=== PATIENT | female | born 1985 | race Caucasian/White ===

== ENCOUNTER 2017-05-30 01:17 | Emergency (ER) | payer OTHER ==
[2017-05-30 01:21] VITALS: BP 154/78
[2017-05-30] MEDS ORDERED: NS 0.9% 1000 ML* 1,000 ML IV ONE (01:50)
[2017-05-30] MEDS ORDERED: Ondansetron INJ* 2 MG/ML VIAL IV ONE (01:50)
[2017-05-30] MEDS ORDERED: Ketorolac INJ* 30 MG/ML 1 ML VIAL IV ONE (01:50)
[2017-05-30 02:24] LABS: Hematocrit 41 % (35-47); Hemoglobin 13.3 g/dl (12.0-16.0); Mean Corpuscular HGB Conc 33 g/dl (31-36); Mean Corpuscular Hemoglobin 29 pg (27-31); Mean Corpuscular Volume 89 fL (80-97); Mean Platelet Volume 8 um3 (7.4-10.4); Red Blood Count 4.57 10^6/ul (4.0-5.4); Red Cell Distribution Width 13 % (10.5-15); White Blood Count 9.5 10^3/ul (3.5-10.8)
[2017-05-30 02:25] LABS: Urine Bacteria Absent (Absent); Urine Bilirubin Negative (Negative); Urine Glucose Negative (Negative); Urine Nitrite Negative (Negative)
[2017-05-30 02:26] LABS: ALT 13 U/L (7-52); AST 12 U/L (13-39); Add Diff/Slide Review? Slide Review Added; Albumin 3.8 g/dL (3.2-5.2); Alkaline Phosphatase 125 U/L (34-104); Anion Gap 7 mmol/L (2-11); BUN/Creatinine Ratio 14.3 (8-20); Blood Urea Nitrogen 12 mg/dL (6-24); C Reactive Protein 14.08 mg/L (< 5.00); CO2 Carbon Dioxide 26 mmol/L (22-32); Chloride 103 mmol/L (101-111); Comments Flag Yes; EGFR African American 100.4 (>60); EGFR Non-African American 78.1 (>60); Globulin 3.4 g/dL (2-4); Glucose 108 mg/dL (70-100); Magnesium 1.9 mg/dL (1.9-2.7); Potassium 3.5 mmol/L (3.5-5.0); Sodium 136 mmol/L (133-145); Total Protein 7.2 g/dL (6.4-8.9)
--- NOTE | 2017-05-30 02:30 | ED ---
Jonn Traylor SooYoung, scribed for Raymundo Mcdaniels MD on 05/30/17 at 0152 . Back Pain - HPI Summary HPI Summary: A 31 y/o F presents to ED with c/o L flank pain onset about one hour [employer]. Pain rated as 3/10. Associated: nausea/vomiting. Pain woke pt from sleep. Pert PMHx: kidney stones. NKA. - History of Current Complaint Chief Complaint: EDFlankPain Stated Complaint: BACK PAIN Time Seen by Provider: 05/30/17 01:44 Hx Obtained From: Patient Hx Last Menstrual Period: 05/29/16 Onset/Duration: Sudden Onset, Lasting Hours, Still Present Timing: Constant Back Pain Location: Is Diffuse - L flank Pain Intensity: 3 Pain Scale Used: 0-10 Numeric Associated Signs And Symptoms: Positive: Other - pos: n/v - Allergies/Home Medications Allergies/Adverse Reactions: Allergies Allergy/AdvReac Type Severity Reaction Status Date / Time No Known Allergies Allergy Verified 10/11/15 08:52 PMH/Surg Hx/FS Hx/Imm Hx Previously Healthy: No Endocrine/Hematology History: Denies: Hx Diabetes, Hx Thyroid Disease Cardiovascular History: Denies: Hx Hypertension Respiratory History: Reports: Hx Asthma Denies: Hx Chronic Obstructive Pulmonary Disease (COPD) GI History: Denies: Hx Ulcer - Immunization History Date of Tetanus Vaccine: 2010 Date of Influenza Vaccine: utd Infectious Disease History: No Infectious Disease History: Denies: Hx Clostridium Difficile, Hx Hepatitis, Hx Human Immunodeficiency Virus (HIV), Hx of Known/Suspected MRSA, Hx Shingles, Hx Tuberculosis, History Other Infectious Disease, Traveled Outside the [place] in Last 30 Days - Family History Known Family History: Positive: Cardiac Disease, Hypertension, Diabetes - Social History Alcohol Use: Rare Substance Use Type: Reports: None Hx Tobacco Use: No Smoking Status (MU): Never Smoked Tobacco Have You Smoked in the Last Year: No Review of Systems Negative: Fever Positive: Vomiting, Nausea Positive: flank pain - L All Other Systems Reviewed And Are Negative: Yes Physical Exam Triage Information Reviewed: Yes Vital Signs On Initial Exam: Initial Vitals Temp Pulse Resp BP Pulse Ox 96.4 F 109 18 154/78 95 05/30/17 01:18 05/30/17 01:18 05/30/17 01:18 05/30/17 01:18 05/30/17 01:18 Vital Signs Reviewed: Yes Appearance: Positive: Well-Appearing, Pain Distress - mild discomfort Skin: Positive: Warm Head/Face: Positive: Normal Head/Face Inspection ENT: Positive: Hearing grossly normal Neck: Positive: Supple Respiratory/Lung Sounds: Positive: Clear to Auscultation, Breath Sounds Present Cardiovascular: Positive: RRR Abdomen Description: Positive: Nontender, No Organomegaly, Soft. Negative: CVA Tenderness (R), CVA Tenderness (L) Bowel Sounds: Positive: Present Musculoskeletal: Positive: Strength/ROM Intact Neurological: Positive: Alert, Oriented to Person Place, Time Psychiatric: Positive: Affect/Mood Appropriate - Thee Coma Scale Coma Scale Total: 15 Diagnostics - Vital Signs Vital Signs Temp Pulse Resp BP Pulse Ox 05/30/17 01:20 96.4 F 109 16 154/78 100 05/30/17 01:18 96.4 F 109 18 154/78 95 - Laboratory Lab Results: Lab Results 05/30/17 05/30/17 05/30/17 Range/Units 01:30 02:00 02:00 WBC 9.5 (3.5-10.8) 10^3/ul RBC 4.57 (4.0-5.4) 10^6/ul Hgb 13.3 (12.0-16.0) g/dl Hct 41 (35-47) % MCV 89 (80-97) fL MCH 29 (27-31) pg MCHC 33 (31-36) g/dl RDW 13 (10.5-15) % Plt Count 307 (150-450) 10^3/ul MPV 8 (7.4-10.4) um3 Neut % (Auto) 70.3 (38-83) % Lymph % (Auto) 20.5 L (25-47) % [place] % (Auto) 5.6 (1-9) % Eos % (Auto) 2.8 (0-6) % Baso % (Auto) 0.8 (0-2) % Absolute Neuts (auto) 6.7 (1.5-7.7) 10^3/ul Absolute Lymphs (auto) 1.9 (1.0-4.8) 10^3/ul Absolute Monos (auto) 0.5 (0-0.8) 10^3/ul Absolute Eos (auto) 0.3 (0-0.6) 10^3/ul Absolute Basos (auto) 0.1 (0-0.2) 10^3/ul Absolute Nucleated RBC 0.01 10^3/ul Nucleated RBC % 0.1 Sodium 136 (133-145) mmol/L Potassium 3.5 (3.5-5.0) mmol/L Chloride 103 (101-111) mmol/L Carbon Dioxide 26 (22-32) mmol/L Anion Gap 7 (2-11) mmol/L BUN 12 (6-24) mg/dL Creatinine 0.84 (0.51-0.95) mg/dL Est GFR ( Amer) 100.4 (>60) Est GFR (Non-Af Amer) 78.1 (>60) BUN/Creatinine Ratio 14.3 (8-20) Glucose 108 H (70-100) mg/dL Calcium 9.0 (8.6-10.3) mg/dL Magnesium 1.9 (1.9-2.7) mg/dL Total Bilirubin 0.30 (0.2-1.0) mg/dL AST 12 L (13-39) U/L ALT 13 (7-52) U/L Alkaline Phosphatase 125 H (34-104) U/L C-Reactive Protein 14.08 H (< 5.00) mg/L Total Protein 7.2 (6.4-8.9) g/dL Albumin 3.8 (3.2-5.2) g/dL Globulin 3.4 (2-4) g/dL Albumin/Globulin Ratio 1.1 (1-3) Beta HCG, Quant Pending Urine Color Yellow Urine Appearance Cloudy Urine pH 5.0 (5-9) Ur Specific Cook 1.024 (1.010-1.030) Urine Protein Negative (Negative) Urine Ketones Negative (Negative) Urine Blood 3+ H (Negative) Urine Nitrate Negative (Negative) Urine Bilirubin Negative (Negative) Urine Urobilinogen Negative (Negative) Ur Leukocyte Esterase 1+ H (Negative) Urine WBC (Auto) 1+(6-10/hpf) H (Absent) Urine RBC (Auto) 3+(>10/hpf) H (Absent) Ur Squamous Epith Cells Present H (Absent) Calcium Oxalate Crystal Present H (Absent) Urine Bacteria Absent (Absent) Urine Glucose Negative (Negative) Result Diagrams: 05/30/17 02:00 05/30/17 02:00 Lab Statement: Any lab studies that have been ordered have been reviewed, and results considered in the medical decision making process. - CT ABD/PEL CT Interpretation: Positive (See Comments) - IMPRESSION: Mild L hydronephrosis secondary to a 4mm proximal L uretal stone,at or just beyond the UPJ. CT Interpretation Completed By: Radiologist Re-Evaluation - Re-Evaluation 1 Re-Evaluation Time: 03:34 Change: Improved Comment: Discussing results with pt. Pt is pain free. Will D/C home, to f/u with urology. Back Pain Course/Dx - Course Course Of Treatment: Pt is a 31 y/o F presenting with c/o L flank pain onset about one hour [employer]. Pain rated as 3/10. Associated: nausea/vomiting. Pain woke pt from sleep. Pert PMHx: kidney stones. NKA. Pt given fluids, toradol, zofran , morphine, pecocet in ED. CRP is 14.08. UA results show 3+ blood, 3+ RBC, 1+ leukocyte esterase, 1+ WBC, squamous epithelia present, calcium oxalate crystal present. ABD/PEL CT shows mild L hydronephrosis secondary to a 4mm proximal L uretal stone,at or just beyond the UPJ. Will D/C home to f/u with urology. - Diagnoses Provider Diagnoses: Renal colic Discharge - Discharge Plan Condition: Stable Disposition: HOME Patient Education Materials: Renal Colic (ED) Referrals: Lilliana Unger MD [Primary Care Provider] - Terence Frye MD [Medical Doctor] - 3 Days Additional Instructions: Follow up with Dr. Frye, urology, within the next few days. Please return to the ED if you experience new or worsening symptoms. The documentation as recorded by the Jonn cid SooYoung accurately reflects the service I personally performed and the decisions made by me, Raymundo Mcdaniels MD.
[2017-05-30] MEDS ORDERED: Morphine INJ* 2 MG/ML 1 ML SYRINGE IV ONE (03:07)
[2017-05-30] MEDS ORDERED: oxyCODONE/Acetamin 5/325 MG* TAB PO ONE (03:37)
--- NOTE | 2017-05-30 08:11 | RAD ---
INDICATION: Left flank pain COMPARISON: CT December 14, 2009 TECHNIQUE: Noncontrast axial source images were acquired from the level hemidiaphragms to the symphysis pubis as part of CT imaging for renal stone. Lung bases: The lung bases are clear. Liver: The liver is mildly with findings of mild hepatic steatosis. Noncontrast imaging shows no evidence of a hepatic mass or ductal dilatation. Gallbladder: There are no calcified gallstones. There is no evidence of wall thickening or pericholecystic fluid.. Spleen: The spleen is normal in size. The noncontrast CT appearance is normal. Pancreas: Noncontrast imaging shows no pancreatic mass or ductal dilitation. Adrenal glands: No masses are identified. Kidneys/Bladder: There is a 4 mm left UPJ calculus producing mild obstructive findings. There are no other calcifications of urinary significance. The bladder is normal. Adenopathy: There is no evidence of intraperitoneal or retroperitoneal adenopathy. Evaluation is limited without oral contrast. Fluid collections: There are no free or localized fluid collections. Vessels: The aorta and iliac vessels are normal in caliber. There are no significant atherosclerotic changes. The IVC appears normal Pelvic organs: The uterus and adnexa appear normal GI tract: Evaluation of the bowel is limited without oral contrast. The stomach, small bowel, and lower GI tract appear grossly normal. There are no obstructive findings. The appendix is visualized and appears normal. Soft tissues: No soft tissue abnormalities of the extraperitoneal abdomen or pelvis are identified. Osseous structures: There are no acute osseous findings. IMPRESSION: 4 MM LEFT UPJ CALCULUS WITH MILD OBSTRUCTIVE FINDINGS
== END 2017-05-30 03:52 | disposition home or self-care (01) ==
LOC: ED 01:17
DX: N13.2 Hydronephrosis with renal and ureteral calculous obstruction (principal); Z87.442 Personal history of urinary calculi; Z32.02 Encounter for pregnancy test, result negative; R11.2 Nausea with vomiting, unspecified; J45.909 Unspecified asthma, uncomplicated
CPT/HCPCS: 36415; 74176; 80053; 81003; 81015; 83735; 84702; 85025; 86140; 87086; 96361; 96374; 96375; 99283; A9270-GY; J1885; J2270; J2405

== ENCOUNTER 2019-08-03 09:08 | Emergency (ER) | payer OTHER ==
[2019-08-03 09:19] VITALS: BP 161/73
--- NOTE | 2019-08-03 09:47 | UC ---
Complaint Female HPI - History Of Current Complaint Chief Complaint: UCSTDScreening Stated Complaint: STD TESTING Time Seen by Provider: 08/03/19 09:46 Hx Last Menstrual Period: 07/29/19 Pain Intensity: 3 - Allergies/Home Medications Allergies/Adverse Reactions: Allergies Allergy/AdvReac Type Severity Reaction Status Date / Time No Known Allergies Allergy Verified 08/03/19 09:19 PMH/Surg Hx/FS Hx/Imm Hx - Surgical History Surgical History: None - Family History Known Family History: Positive: None, Cardiac Disease, Hypertension, Diabetes - Social History Alcohol Use: Rare Substance Use Type: None Smoking Status (MU): Never Smoked Tobacco Have You Smoked in the Last Year: No Physical Exam Vital Signs: Initial Vital Signs Temp 98.7 F 08/03/19 09:16 Pulse 90 08/03/19 09:16 Resp 18 08/03/19 09:16 BP 161/73 08/03/19 09:16 Pulse Ox 100 08/03/19 09:16 Discharge ED - Discharge Plan Referrals: No Primary Care Phys,NOPCP [Primary Care Provider] -
--- NOTE | 2019-08-03 10:31 | UC ---
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 A couple weeks ago, had yellow green vag d/c, rx'd with yeast infection medication otc. Sx returned again a few days ago. No rash. No fever / chills. No GI issues. No sob / cp / palpitations. No sore throat. No sores in genitalia. Does sometimes get mouth cold sores but none in several months. Some dysuria, without freq / urg c/o. - History of Current Complaint [facility] Stated Complaint: STD TESTING Time Seen by Provider: 08/03/19 09:46 Hx Obtained From: Patient Hx Last Menstrual Period: 07/29/19 Pain Intensity: 3 - Allergy/Home Medications Allergies/Adverse Reactions: Allergies Allergy/AdvReac Type Severity Reaction Status Date / Time No Known Allergies Allergy Verified 08/03/19 09:19 PMH/Surg Hx/FS Hx/Imm Hx Previously Healthy: Yes - Surgical History Surgical History: None - Family History Known Family History: Positive: None, Cardiac Disease, Hypertension, Diabetes - Social History Alcohol Use: Rare Substance Use Type: None Smoking Status (MU): Never Smoked Tobacco Have You Smoked in the Last Year: No Review of Systems All Other Systems Reviewed And Are Negative: Yes Constitutional: Positive: Negative Skin: Positive: Other - see hpi Eyes: Positive: Negative ENT: Positive: Negative Respiratory: Positive: Negative Cardiovascular: Positive: Negative Gastrointestinal: Positive: Negative Genitourinary: Positive: Other - see hpi Motor: Positive: Negative Neurovascular: Positive: Negative Musculoskeletal: Positive: Negative Neurological: Positive: Negative Psychological: Positive: Negative Is Patient Immunocompromised?: No Physical Exam Triage Information Reviewed: Yes Appearance: Well-Appearing, Well-Nourished Vital Signs: Initial Vital Signs Temp 98.7 F 08/03/19 09:16 Pulse 90 08/03/19 09:16 Resp 18 08/03/19 09:16 BP 161/73 08/03/19 09:16 Pulse Ox 100 08/03/19 09:16 Vital Signs Reviewed: Yes Eye Exam: Normal ENT Exam: Normal Neck exam: Normal Respiratory Exam: Normal Respiratory: Positive: Chest non-tender, Lungs clear, Normal breath sounds, No respiratory distress, No accessory muscle use Cardiovascular Exam: Normal Cardiovascular: Positive: RRR, No Murmur, Pulses Normal, Brisk Capillary Refill Abdominal Exam: Normal Abdomen Description: Positive: Nontender Pelvic Exam: Positive: External Exam Normal, Bimanual Exam Normal, No Cerv. Motion Tender, Other - yellow green mild vaginal d/c. without cmt Musculoskeletal Exam: Normal Neurological Exam: Normal - grossly nonfocal Psychological Exam: Normal Skin Exam: Normal Course/Dx - Course Course Of Treatment: bp 161/73 d/w pt, she reports d/t current anxiety, but o/o ok Reviewed coa / tx plan with pt. Questions as posed answered to the best of my ability. - Diagnoses Provider Diagnosis: Vaginitis Discharge ED - Sign-Out/Discharge Documenting (check all that apply): Patient Departure All imaging exams completed and their final reports reviewed: No Studies - Discharge Plan Condition: Stable Disposition: HOME Patient Education Materials: Sexually Transmitted Diseases (ED) Referrals: No Primary Care Phys,NOPCP [Primary Care Provider] - Additional Instructions: Please follow up with your primary care physician in the next 1-2 weeks for recheck and results review. Seek medical attention for worse or new symptoms. Avoid from sexual relations until results of testing are back, and if positive, then avoid sexual relations until partner treated. - Billing Disposition and Condition Condition: STABLE Disposition: Home
[2019-08-03] MEDS ORDERED: cefTRIAXone VIAL(*) 250 MG VIAL IM ONE (10:42)
[2019-08-03] MEDS ORDERED: Lidocaine 1% MPF ** 5 ML VIAL IM ONE (10:42)
[2019-08-03] MEDS ORDERED: Lidocaine 2% PF * 5 ML VIAL INJ ONE (10:43)
[2019-08-03 16:43] LABS: Hepatitis B Surface Antigen Negative (Negative)
[2019-08-03 17:01] LABS: Hepatitis C Antibody Negative (Negative)
[2019-08-03 21:10] LABS: HIV 4th Generation Nonreactive (Nonreactive)
--- NOTE | 2019-08-05 11:45 | UC ---
- Progress Note Progress Note: Urine culture report reviewed: No growth Patient was not started on any antibiotics for UTI. No change in plan Course/Dx - Diagnoses Provider Diagnoses: Vaginitis Discharge ED - Sign-Out/Discharge Documenting (check all that apply): Post-Discharge Follow Up All imaging exams completed and their final reports reviewed: No Studies - Discharge Plan Condition: Stable Disposition: HOME Prescriptions: Azithromycin 100 mg PO ONCE #2 tablet metroNIDAZOLE VAGINAL 0.75%* 1 applic VAGINAL BEDTIME 7 Days #1 tube Ondansetron ODT TAB* [Zofran 4 MG Odt TAB*] 4 mg PO ONCE PRN #1 tab.odt PRN Reason: Nausea Patient Education Materials: Sexually Transmitted Diseases (ED) Referrals: No Primary Care Phys,NOPCP [Primary Care Provider] - Additional Instructions: Please follow up with your primary care physician in the next 1-2 weeks for recheck and results review. Seek medical attention for worse or new symptoms. Avoid from sexual relations until results of testing are back, and if positive, then avoid sexual relations until partner treated. - Billing Disposition and Condition Condition: STABLE Disposition: Home
[2019-08-06 13:29] LABS: Chlamydia trachomatis NAA Negative (Negative); Neisseria gonorrhoeae (GC) NAA Negative (Negative)
--- NOTE | 2019-08-06 15:07 | UC ---
- Progress Note Progress Note: Please advise that Chlamydia and GC are negative. N treatment needed at this time. Urine culture was also no growth. Course/Dx - Diagnoses Provider Diagnoses: Vaginitis Discharge ED - Sign-Out/Discharge Documenting (check all that apply): Patient Departure All imaging exams completed and their final reports reviewed: No Studies - Discharge Plan Condition: Stable Disposition: HOME Prescriptions: Azithromycin 100 mg PO ONCE #2 tablet metroNIDAZOLE VAGINAL 0.75%* 1 applic VAGINAL BEDTIME 7 Days #1 tube Ondansetron ODT TAB* [Zofran 4 MG Odt TAB*] 4 mg PO ONCE PRN #1 tab.odt PRN Reason: Nausea Patient Education Materials: Sexually Transmitted Diseases (ED) Referrals: No Primary Care Phys,NOPCP [Primary Care Provider] - Additional Instructions: Please follow up with your primary care physician in the next 1-2 weeks for recheck and results review. Seek medical attention for worse or new symptoms. Avoid from sexual relations until results of testing are back, and if positive, then avoid sexual relations until partner treated. - Billing Disposition and Condition Condition: STABLE Disposition: Home
== END 2019-08-03 11:15 | disposition home or self-care (01) ==
LOC: UCEAST 09:08
DX: N76.0 Acute vaginitis (principal); F41.9 Anxiety disorder, unspecified
CPT/HCPCS: 36415; 80074; 81003; 84702; 87086; 87389; 87480; 87491; 87510; 87591; 96372; 99212; G0463; J0696